=== PATIENT | male | born 1965 | race Two or more races ===

== ENCOUNTER 2024-09-12 21:47 | Emergency (ER) | payer OTHER ==
[~2024-09-12] VITALS: Ht 182.9 cm; Wt 113.4 kg
[2024-09-12] MEDS ORDERED: 0.9 % SODIUM CHLORIDE 1,000 ML IV STA (22:47)
[2024-09-12] MEDS ORDERED: VANCOMYCIN HCL 1,000 MG VIAL IV STA (22:49)
[2024-09-12] MEDS ORDERED: CEFTRIAXONE SODIUM 1,000 MG VIAL IV STA (22:49)
[2024-09-12] MEDS ORDERED: ACETAMINOPHEN 500 MG GEL..CAP PO STA (22:54)
[2024-09-12] MEDS ORDERED: ACETAMINOPHEN 500 MG GEL..CAP PO ONE (23:24)
[2024-09-12] MEDS ORDERED: VANCOMYCIN HCL 1,000 MG VIAL ONE (23:25)
[2024-09-12] MEDS ORDERED: CEFTRIAXONE SODIUM 1,000 MG VIAL ONE (23:25)
[2024-09-13 00:56] LABS: BASO % 0.6 % (0.1-1.2); EOS # 0.32 (0.04-0.54); EOS % 3.8 % (0.7-7.0); LYMPH # 1.45 (1.18-3.74); LYMPH % 17.1 % (19.3-53.1); MEAN PLATELET VOLUME 9.60 fl (9.4-12.4); MONO # 0.72 (0.24-0.82); MONO % 8.5 % (4.7-12.5); NEUT # 5.90 (1.56-6.13); NEUT % 69.8 % (34.0-71.1); RED CELL DISTRIBUTION WIDTH 11.6 % (11.6-14.4)
[2024-09-13 01:04] LABS: ERYTHROCYTE SEDIMENTATION RATE 51 mm/hr (0-20)
[2024-09-13 01:16] LABS: INR 1.1
[2024-09-13 01:24] LABS: ALT/SGPT 21.0 U/L (12-78); AST/SGOT 15.0 U/L (15-37); BILIRUBIN TOTAL 0.41 mg/dL (0.3-1.2); BUN CREA RATIO 20.0 (7.0-25.0); CREATININE SERUM 0.8 mg/dL (0.70-1.30); GFR 99.64; GLOBULINA 3.4 G/DL (2.4-3.5); GLUCOSE FASTING 104.0 mg/dL (65-100); OSMOLALITY SERUM 279.0 MOSM/KG (275-295)
[2024-09-13 07:08] LABS: URINE APPEARANCE Clear; URINE BILIRRUBIN Negative (NEGATIVE); URINE BLOOD Negative; URINE COLOR Yellow; URINE GLUCOSE Negative (NEGATIVE); URINE KETONE Negative (NEGATIVE); URINE LEUKOCYTE Negative; URINE NITRATE Negative; URINE PROTEIN Negative (NEGATIVE); URINE UROBILINOGEN 0.2 E.U./dl
[2024-09-13] MEDS ORDERED: CEPHALEXIN500 MG PO (07:09)
[2024-09-13 07:14] LABS: URINE BACTERIA 3.6 uL (0.0-1933); URINE CAST 0.00 uL (0.0-1.40); URINE EPITHELIAL CELLS 0.0 uL (0.0-38.8); URINE RBC 0.2 uL (0.0-20.8); URINE WBC 0.4 uL (0.0-23.2)
[2024-09-13 08:28] VITALS: BP 142/50; O2SAT 98
== END 2024-09-13 08:29 ==
LOC: ER 21:47
PROVIDERS: Emergency Medicine
DX: L03.114 Cellulitis of left upper limb (principal); J32.9 Chronic sinusitis, unspecified; Z88.2 Allergy status to sulfonamides; Z88.8 Allergy status to other drugs, medicaments and biological substances